=== PATIENT | male | born 1955 | race Asian ===

== ENCOUNTER 2024-02-29 16:28 | Outpatient (RCR) | payer OTHER, SELFPAY | END 2024-02-29 23:59 | disposition home or self-care (01) | LOC: CRHB 16:28 | PROVIDERS: ATTENDING PHYSICIAN Internal Medicine Cardiovascular Disease | DX: I25.10 Atherosclerotic heart disease of native coronary artery without angina pectoris (principal); Z95.5 Presence of coronary angioplasty implant and graft; I25.2 Old myocardial infarction | CPT/HCPCS: G0422; G0423 ==

== ENCOUNTER 2024-03-28 16:12 | Outpatient (RCR) | payer OTHER, SELFPAY | END 2024-03-28 23:59 | disposition home or self-care (01) | LOC: CRHB 16:12 | PROVIDERS: ATTENDING PHYSICIAN Internal Medicine Cardiovascular Disease | DX: I25.10 Atherosclerotic heart disease of native coronary artery without angina pectoris (principal); Z95.5 Presence of coronary angioplasty implant and graft; I25.2 Old myocardial infarction | CPT/HCPCS: G0422; G0423 ==

== ENCOUNTER 2024-04-29 16:00 | Outpatient (RCR) | payer OTHER, SELFPAY | END 2024-04-29 23:59 | disposition home or self-care (01) | LOC: CRHB 16:00 | PROVIDERS: ATTENDING PHYSICIAN Internal Medicine Cardiovascular Disease | DX: I25.2 Old myocardial infarction (principal); Z95.5 Presence of coronary angioplasty implant and graft | CPT/HCPCS: G0422; G0423 ==

== ENCOUNTER 2024-05-13 15:48 | Outpatient (RCR) | payer OTHER, SELFPAY | END 2024-05-13 23:59 | disposition home or self-care (01) | LOC: CRHB 15:48 | PROVIDERS: ATTENDING PHYSICIAN Internal Medicine Cardiovascular Disease | DX: I21.4 Non-ST elevation (NSTEMI) myocardial infarction (principal); Z95.5 Presence of coronary angioplasty implant and graft | CPT/HCPCS: G0422; G0423 ==